=== PATIENT | female | born 1975 | race Caucasian/White ===

== ENCOUNTER 2020-01-09 06:46 | Emergency (ER) | payer SELFPAY ==
[2020-01-09] MEDS ORDERED: Sodium Chloride 0.9% 2.5 ML Syringe FLUSH PRN (07:13)
[2020-01-09] MEDS ORDERED: Morphine 4 MG/ML Syringe IVPUSH ONE (07:13)
[2020-01-09] MEDS ORDERED: Sodium Chloride 0.9% 1,000 ML IV ONE (07:13)
[2020-01-09] MEDS ORDERED: Sodium Chloride 0.9% 10 ML Syringe FLUSH PRN (07:13)
[2020-01-09] MEDS ORDERED: Ondansetron 4 MG/2 ML SDV IVPUSH ONE (07:13)
--- NOTE | 2020-01-09 07:41 | EDM.PDOC ---
ED HPI GENERAL MEDICAL PROBLEM - General Chief Complaint: Upper Extremity Injury/Pain Stated Complaint: SEVERE LEFT SHOULDER PAIN Time Seen by Provider: 01/09/20 07:09 Source of Information: Reports: Patient - History of Present Illness INITIAL COMMENTS - FREE TEXT/NARRATIVE: History of present illness: 44-year-old female presenting with left shoulder pain on and off for the last week, now radiating down the left arm and associated with some numbness feeling in the arm. She does not recall any trauma or abnormal twisting of the arm but the day before her pain started she had been doing some work up on a bulletin board with her arm above her head. Since then the pain has been intermittent, however yesterday she went to a chiropractor who did an adjustment on her neck, and then she woke up in the middle of the night last night with severe and worsening left shoulder pain. She took 800 mg of ibuprofen which did not help her pain and she continued to have worsening of the pain in the posterior shoulder radiating down to the arm that was severe and started to become associated with nausea. She has not had any chest pain or shortness of breath during this time. No abdominal pain. No neck pain. Review of systems: As per history of present illness and below otherwise all systems reviewed and negative. Past medical history: As per history of present illness and as reviewed below otherwise noncontributory. Hypertension Surgical history: As per history of present illness and as reviewed below otherwise noncontributory. Cholecystectomy hysterectomy Social history: No reported history of drug or alcohol abuse. No tobacco Family history: As per history of present illness and as reviewed below otherwise noncontributory. Physical exam: GEN: no acute distress, well appearing HEENT: Atraumatic, normocephalic, mucous membranes moist, Neck: supple, nontender, trachea midline. No C-spine tenderness. Lungs: No respiratory distress. Heart: RRR Abdomen: Soft, nondistended, nontender. Back: nontender, no midline tenderness Extremities: Atraumatic, there is mild pain with range of motion of the left shoulder but no tenderness about the joint, no tenderness in the posterior shoulder/scapular area where the patient reports her pain is the greatest. Neurovascularly intact. Neuro: Awake, alert, oriented. Neuro Exam nonfocal. Skin: warm, dry, no lesions Diagnostics: Labs, EKG, CT angios. Therapeutics: [] MDM: Impression: [] Plan: [] Definitive disposition and diagnosis as appropriate pending reevaluation and review of above. left arm Pain Score (Numeric/FACES): 10 - Related Data Allergies Allergy/AdvReac Type Severity Reaction Status Date / Time codeine Allergy Anaphylactic Verified 01/09/20 07:03 Shock Home Meds: Home Meds hydrOXYzine HCl [Atarax] 1 tab PO ASDIRECTED PRN 12/17/14 [History] Bp Med 01/09/20 [History] Past Medical History Other HEENT History: Reports smoked for about 3 yrs, QUIT 15 yrs ago Cardiovascular History: Reports: Hypertension Respiratory History: Reports: None Other BAKING ASSISTANT History: Heavy Menses Musculoskeletal History: Reports: None Neurological History: Reports: None Other Psychiatric History: Use Anit-histamine OTC for treatment of Anxiety periodically Endocrine/Metabolic History: Reports: None Hematologic History: Reports: None Dermatologic History: Reports: None - Past Surgical History Other GI Surgeries/Procedures: Age 18 yrs Lap CHolecystectomy Female Surgical History: Reports: Hysterectomy Social & Family History - Family History Family Medical History: Noncontributory - Tobacco Use Smoking Status *Q: Never Smoker - Recreational Drug Use Recreational Drug Use: No Review of Systems - Review of Systems Review Of Systems: See Below (HPI) ED EXAM, GENERAL - Physical Exam Exam: See Below (See HPI) EKG INTERPRETATION EKG Interpretation Comments: EKG performed today at 7:20 AM, sinus rhythm, rate 98, QTc 451, T inversions in the inferior leads, no STEMI. Interpreted by me. Course - Vital Signs Text/Narrative:: Presenting with worsening left shoulder pain without any significant trauma. Pain significantly worsened after chiropractic manipulation Differential diagnosis: Cardiac etiology/angina/ACS, aortic dissection, cervical disc disease, cervical vasculature injury/dissection after chiropractic manipulation, left shoulder strain, rotator cuff injury, cervical radiculopathy EKG with inferior T inversions but no other significant abnormalities, no STEMI. Labs pending. Initial and repeat troponin negative. Labs unremarkable. CT angio neck, CT angios chest with no signs of any arterial or aortic dissection or any other acute pathology. No clear etiology for the patient's pain. Pain ongoing despite multiple different medications including different classes of medications. Finally pain seemed to be more muscular spasm-like and therefore got Flexeril and lidocaine patch and had significant improvement. Low risk for coronary artery disease, heart score 3, initial and repeat troponin negative. Stable for discharge Last Recorded V/S: Last Vital Signs Temp 96.5 F L 01/09/20 12:51 Pulse 78 01/09/20 12:51 Resp 12 01/09/20 12:51 BP 127/60 01/09/20 12:51 Pulse Ox 96 01/09/20 12:51 - Orders/Labs/Meds Orders: Active Orders 24 hr Category Date Time Status EKG Documentation Completion [RC] STAT Care 01/09/20 07:15 Active Sodium Chloride 0.9% [Saline Flush] Med 01/09/20 07:13 Active 10 ml FLUSH ASDIRECTED PRN Sodium Chloride 0.9% [Saline Flush] Med 01/09/20 07:13 Active 2.5 ml FLUSH ASDIRECTED PRN Saline Lock Insert [OM.PC] Stat Oth 01/09/20 07:13 Ordered Medication Orders Sodium Chloride (Saline Flush) 10 ml FLUSH ASDIRECTED PRN PRN Reason: Keep Vein Open Last Admin: 01/09/20 10:17 Dose: 10 ml Documented by: JODY Sodium Chloride (Saline Flush) 2.5 ml FLUSH ASDIRECTED PRN PRN Reason: Keep Vein Open Last Admin: 01/09/20 10:16 Dose: 2.5 ml Documented by: JODY Labs: Laboratory Tests 01/09/20 01/09/20 01/09/20 Range/Units 07:19 07:19 09:02 WBC 9.68 (4.0-11.0) K/uL RBC 5.11 (4.30-5.90) M/uL Hgb 13.9 (12.0-16.0) g/dL Hct 42.6 (36.0-46.0) % MCV 83.4 (80.0-98.0) fL MCH 27.2 (27.0-32.0) pg MCHC 32.6 (31.0-37.0) g/dL RDW Std Deviation 41.6 (28.0-62.0) fl RDW Coeff of July 14 (11.0-15.0) % Plt Count 309 (150-400) K/uL MPV 8.60 (7.40-12.00) fL Neut % (Auto) 65.7 (48.0-80.0) % Lymph % (Auto) 23.7 (16.0-40.0) % [place] % (Auto) 6.5 (0.0-15.0) % Eos % (Auto) 3.9 (0.0-7.0) % Baso % (Auto) 0.2 (0.0-1.5) % Neut # (Auto) 6.4 H (1.4-5.7) K/uL Lymph # (Auto) 2.3 (0.6-2.4) K/uL [place] # (Auto) 0.6 (0.0-0.8) K/uL Eos # (Auto) 0.4 (0.0-0.7) K/uL Baso # (Auto) 0.0 (0.0-0.1) K/uL Nucleated RBC % 0.0 /100WBC Nucleated RBCs # 0 K/uL Sodium 143 (136-145) mmol/L Potassium 3.8 (3.5-5.1) mmol/L Chloride 105 (98-107) mmol/L Carbon Dioxide 26.9 (21.0-32.0) mmol/L BUN 15 (7.0-18.0) mg/dL Creatinine 0.8 (0.6-1.0) mg/dL Est Cr Clr Drug Dosing 73.46 mL/min Estimated GFR (MDRD) > 60.0 ml/min Glucose 146 H (74-106) mg/dL Calcium 9.2 (8.5-10.1) mg/dL Total Bilirubin 0.3 (0.2-1.0) mg/dL AST 19 (15-37) IU/L ALT 31 (14-63) IU/L Alkaline Phosphatase 89 (46-116) U/L Troponin I < 0.050 (0.000-0.056) ng/mL Total Protein 7.0 (6.4-8.2) g/dL Albumin 3.7 (3.4-5.0) g/dL Globulin 3.3 (2.6-4.0) g/dL Albumin/Globulin Ratio 1.1 (0.9-1.6) Urine Color YELLOW Urine Appearance SLT CLOUDY Urine pH 5.5 (5.0-8.0) Ur Specific [place] <= 1.005 (1.001-1.035) Urine Protein NEGATIVE (NEGATIVE) mg/dL Urine Glucose (UA) NEGATIVE (NEGATIVE) mg/dL Urine Ketones NEGATIVE (NEGATIVE) mg/dL Urine Occult Blood NEGATIVE (NEGATIVE) Urine Nitrite NEGATIVE (NEGATIVE) Urine Bilirubin NEGATIVE (NEGATIVE) Urine Urobilinogen 0.2 (<2.0) EU/dL Ur Leukocyte Esterase NEGATIVE (NEGATIVE) 01/09/20 Range/Units 10:34 WBC (4.0-11.0) K/uL RBC (4.30-5.90) M/uL Hgb (12.0-16.0) g/dL Hct (36.0-46.0) % MCV (80.0-98.0) fL MCH (27.0-32.0) pg MCHC (31.0-37.0) g/dL RDW Std Deviation (28.0-62.0) fl RDW Coeff of July (11.0-15.0) % Plt Count (150-400) K/uL MPV (7.40-12.00) fL Neut % (Auto) (48.0-80.0) % Lymph % (Auto) (16.0-40.0) % [place] % (Auto) (0.0-15.0) % Eos % (Auto) (0.0-7.0) % Baso % (Auto) (0.0-1.5) % Neut # (Auto) (1.4-5.7) K/uL Lymph # (Auto) (0.6-2.4) K/uL [place] # (Auto) (0.0-0.8) K/uL Eos # (Auto) (0.0-0.7) K/uL Baso # (Auto) (0.0-0.1) K/uL Nucleated RBC % /100WBC Nucleated RBCs # K/uL Sodium (136-145) mmol/L Potassium (3.5-5.1) mmol/L Chloride (98-107) mmol/L Carbon Dioxide (21.0-32.0) mmol/L BUN (7.0-18.0) mg/dL Creatinine (0.6-1.0) mg/dL Est Cr Clr Drug Dosing mL/min Estimated GFR (MDRD) ml/min Glucose (74-106) mg/dL Calcium (8.5-10.1) mg/dL Total Bilirubin (0.2-1.0) mg/dL AST (15-37) IU/L ALT (14-63) IU/L Alkaline Phosphatase (46-116) U/L Troponin I < 0.050 (0.000-0.056) ng/mL Total Protein (6.4-8.2) g/dL Albumin (3.4-5.0) g/dL Globulin (2.6-4.0) g/dL Albumin/Globulin Ratio (0.9-1.6) Urine Color Urine Appearance Urine pH (5.0-8.0) Ur Specific [place] (1.001-1.035) Urine Protein (NEGATIVE) mg/dL Urine Glucose (UA) (NEGATIVE) mg/dL Urine Ketones (NEGATIVE) mg/dL Urine Occult Blood (NEGATIVE) Urine Nitrite (NEGATIVE) Urine Bilirubin (NEGATIVE) Urine Urobilinogen (<2.0) EU/dL Ur Leukocyte Esterase (NEGATIVE) Meds: Medications Generic Name Dose Route Start Last Admin Trade Name Freq PRN Reason Stop Dose Admin Sodium Chloride 10 ml 01/09/20 07:13 01/09/20 10:17 Saline Flush FLUSH 10 ml ASDIRECTED PRN Administration Keep Vein Open Sodium Chloride 2.5 ml 01/09/20 07:13 01/09/20 10:16 Saline Flush FLUSH 2.5 ml ASDIRECTED PRN Administration Keep Vein Open Discontinued Medications Generic Name Dose Route Start Last Admin Trade Name Freq PRN Reason Stop Dose Admin Acetaminophen 650 mg 01/09/20 08:11 01/09/20 08:20 Tylenol PO 01/09/20 08:12 650 mg NOW ONE Administration Cyclobenzaprine HCl 10 mg 01/09/20 11:47 01/09/20 12:02 Flexeril PO 01/09/20 11:48 10 mg ONETIME ONE Administration Dexamethasone 8 mg 01/09/20 10:28 01/09/20 10:49 Dexamethasone IVPUSH 01/09/20 10:29 8 mg ONETIME ONE Administration Diphenhydramine HCl 25 mg 01/09/20 08:11 01/09/20 08:21 Benadryl IVPUSH 01/09/20 08:12 25 mg ONETIME ONE Administration Sodium Chloride 1,000 mls @ 999 mls/hr 01/09/20 07:13 01/09/20 07:23 Normal Saline IV 01/09/20 08:13 999 mls/hr .Bolus ONE Administration Iopamidol 100 ml 01/09/20 09:03 01/09/20 09:04 Isovue-370 (76%) IVPUSH 01/09/20 09:04 100 ml ONETIME STA Administration Ketorolac Tromethamine 30 mg 01/09/20 09:58 01/09/20 10:17 Toradol IVPUSH 01/09/20 09:59 30 mg ONETIME ONE Administration Lidocaine 700 mg 01/09/20 11:47 01/09/20 12:02 Lidoderm 5% TOP 01/09/20 11:48 700 mg ONETIME ONE Administration Morphine Sulfate 4 mg 01/09/20 07:13 01/09/20 07:24 Morphine IVPUSH 01/09/20 07:14 4 mg ONETIME ONE Administration Ondansetron HCl 4 mg 01/09/20 07:13 01/09/20 07:23 Zofran IVPUSH 01/09/20 07:14 4 mg ONETIME ONE Administration - Re-Assessments/Exams Free Text/Narrative Re-Assessment/Exam: 01/09/20 08:02 Reporting pain ongoing and not resolved by morphine. I reassessed the patient. She reports she is not having any trouble breathing or any other new symptoms after having received the morphine. She had reported a codeine allergy in the past which involved some shortness of breath, but reported that she had had morphine in the past without any difficulty. She is not having any other symptoms at this time and including no other allergic reaction type signs. 01/09/20 08:12 The patient is now reporting that she feels somewhat drowsy after the morphine but continuing to have pain in the shoulder as her presenting complaint but also now developing some right-sided chest pain which she is concerned may be related to the morphine and she is afraid she is having an allergic reaction now, not having any difficulty breathing or throat tightness. Will give dose of Benadryl and Tylenol. 01/09/20 11:48 After multiple reassessments, the patient is still having intermittent left- sided shoulder pain radiating down to the arm. She does report now that she feels like there is some muscle isacc and enlarging around the paraspinal musculature and while her pain is in the maximal level during palpation there does appear to be a muscle spasm. Therefore we will attempt Flexeril and topical lidocaine patch. Based on the fact that the patient's pain is ongoing I did offer admission versus discharge. The patient is not certain yet and would like to attempt these most recent interventions and see if that will help. 01/09/20 12:41 On reassessment, the patient reports that she is feeling much better. The pain is now only mild discomfort. She does report she still has some occasional spasm type feelings but that they are much less severe. She does report that she is feeling well enough and would like to be discharged at this time. This was after having Flexeril and lidocaine patch. Will prescribe both of these medications for the patient as well as short prednisone burst and refer for outp atient follow-up as the patient may need further outpatient imaging including possibly MRI to evaluate for cervical or thoracic disc disease or radiculopathy. Departure - Departure Time of Disposition: 12:52 Disposition: Home, Self-Care 01 Clinical Impression: Radiculopathy affecting upper extremity, Muscle spasm - Discharge Information Instructions: Radicular Pain, Shoulder Pain, [id number], Cervical Radiculopathy, [id number], Muscle Cramps and Spasms Referrals: Venecia Freed, [facility] [Primary Care Provider] - 2 Days Forms: ED Department Discharge, ED Return to Work/School Form Additional Instructions: The cause for your pain today is unclear, although you may have a bulging disc in your cervical or thoracic spine causing radiculopathy. Please take the steroids for the next 5 days. You may also apply lidocaine patches for 12 hours on and then 12 hours off. You may take Flexeril as needed for muscle spasm but do not drive as this medication can be sedating. Return to the ER if you develop any chest pain or shortness of breath. In addition to all of the above you may also take Tylenol or ibuprofen alternating for pain control, in other words you can take Tylenol 1000 mg which is 2 extra strength tablets every 8 hours and in between those doses take 600 mg of ibuprofen so that medication is also spaced out by 8 hours. Please help with your primary care physician for further monitoring, recheck, who can obtain an MRI to further evaluate the area of pain. The following information is given to patients seen in the emergency department who are being discharged to home. This information is to outline your options for follow-up care. We provide all patients seen in our emergency department with a follow-up referral. The need for follow-up, as well as the timing and circumstances, are variable depending upon the specifics of your emergency department visit. If you don't have a primary care physician on staff, we will provide you with a referral. We always advise you to contact your personal physician following an emergency department visit to inform them of the circumstance of the visit and for follow-up with them and/or the need for any referrals to a consulting specialist. The emergency department will also refer you to a specialist when appropriate. This referral assures that you have the opportunity for follow-up care with a specialist. All of these measure are taken in an effort to provide you with optimal care, which includes your follow-up. Under all circumstances we always encourage you to contact your private physician who remains a resource for coordinating your care. When calling for follow-up care, please make the office aware that this follow-up is from your recent emergency room visit. If for any reason you are refused follow-up, please contact the [facility] Emergency Department at and asked to speak to the emergency department charge nurse. Sepsis Event Note (ED) - Evaluation Sepsis Screening Result: No Definite Risk - Focused Exam Vital Signs: Vital Signs Temp Pulse Resp BP Pulse Ox 01/09/20 12:51 96.5 F L 78 12 127/60 96 01/09/20 12:05 83 18 104/65 94 L 01/09/20 10:51 75 14 111/58 L 96 01/09/20 09:26 96.6 F L 81 14 146/57 H 94 L 01/09/20 08:11 93 18 137/60 94 L 01/09/20 07:04 96.3 F L 89 18 122/79 97 - My Orders Last 24 Hours: My Active Orders 01/09/20 07:13 Sodium Chloride 0.9% [Saline Flush] 10 ml FLUSH ASDIRECTED PRN Sodium Chloride 0.9% [Saline Flush] 2.5 ml FLUSH ASDIRECTED PRN Saline Lock Insert [OM.PC] Stat 01/09/20 07:15 EKG Documentation Completion [RC] STAT - Assessment/Plan Last 24 Hours: My Active Orders 01/09/20 07:13 Sodium Chloride 0.9% [Saline Flush] 10 ml FLUSH ASDIRECTED PRN Sodium Chloride 0.9% [Saline Flush] 2.5 ml FLUSH ASDIRECTED PRN Saline Lock Insert [OM.PC] Stat 01/09/20 07:15 EKG Documentation Completion [RC] STAT
[2020-01-09 07:59] LABS: BLOOD UREA NITROGEN,BUN 15 mg/dL (7.0-18.0); CARBON DIOXIDE,CO2 26.9 mmol/L (21.0-32.0); CHLORIDE,CL 105 mmol/L (98-107); GLUCOSE RANDOM 146 mg/dL (74-106); POTASSIUM,K 3.8 mmol/L (3.5-5.1); SODIUM,NA 143 mmol/L (136-145)
[2020-01-09] MEDS ORDERED: diphenhydrAMINE 50 MG/ML SDV IVPUSH ONE (08:11)
[2020-01-09] MEDS ORDERED: Acetaminophen 325 MG Tab PO ONE (08:11)
[2020-01-09] MEDS ORDERED: Iopamidol 755 Mg/ML 100 ML Bottle IVPUSH STA (09:03)
--- NOTE | 2020-01-09 09:23 | CR ---
Left shoulder: 3 views of the left shoulder were obtained. Comparison: No prior shoulder study. Minimal joint space narrowing is seen within the acromioclavicular joint without abnormal inferior spurring. Glenohumeral joint appears within normal limits. No acute fracture or other bony abnormality is appreciated. Impression: 1. Slight joint space narrowing within the acromioclavicular joint. 2. Left shoulder study is otherwise unremarkable. Diagnostic code #2 Study was dictated in MDT
--- NOTE | 2020-01-09 09:32 | CT ---
Indication: Acute shoulder and back pain. Question dissection. Technique: A CT volumetric acquisition was performed of the thorax during bolus infusion of 100 cc of Isovue 370 nonionic intravenous contrast. Comparison: None Findings: The CT images demonstrate uniform vascular enhancement within the aortic arch and proximal great vessels. There is no evidence dissection within the thoracic aorta or aneurysm formation. Heart size appears normal. There is no evidence pericardial fluid or pleural fluid. The esophagus appears normal and there is no evidence of pneumomediastinum or pneumothorax. The lungs show symmetric inflation. There are no suspicious infiltrates, masses or nodules. Impression: No evidence of aortic dissection or aneurysm within the thorax. Please note that all CT scans at this facility use dose modulation, iterative reconstruction, and/or weight-based dosing when appropriate to reduce radiation dose to as low as reasonably achievable. Dictated by Quinton Haas MD @ Jan 09 2020 9:20AM Signed by Dr. Quinton Haas @ Jan 09 2020 9:32AM
--- NOTE | 2020-01-09 09:36 | CT ---
Indication: Acute shoulder and back pain. Question dissection. Technique: A CT volumetric acquisition was performed of the neck during bolus infusion of 100 cc of Isovue 370 nonionic intravenous contrast. Findings: CT images demonstrate uniform vascular enhancement within the common carotid arteries and internal carotid arteries. There is dominant jugular venous drainage on the left. There is normal vascular enhancement within the vertebral arteries. The subclavian arteries also show normal uniform enhancement. Thyroid gland has normal size and density. There is normal appearance of the parotid and submandibular glands. The nasopharynx and oropharynx appear normal. There is no evidence of cervical lymphadenopathy. Impression: No evidence of vascular dissection within the neck. Please note that all CT scans at this facility use dose modulation, iterative reconstruction, and/or weight-based dosing when appropriate to reduce radiation dose to as low as reasonably achievable. Dictated by Quinton Haas MD @ Jan 09 2020 9:32AM Signed by Dr. Quinton Haas @ Jan 09 2020 9:36AM
[2020-01-09] MEDS ORDERED: Ketorolac 30 MG/ML SDV IVPUSH ONE (09:58)
[2020-01-09] MEDS ORDERED: Dexamethasone 10 MG/ML SDV IVPUSH ONE (10:28)
[2020-01-09] MEDS ORDERED: Cyclobenzaprine 10 MG Tab PO ONE (11:47)
[2020-01-09] MEDS ORDERED: Lidocaine 5% 700 MG Patch TOP ONE (11:47)
[2020-01-09 12:51] VITALS: PULSE 78
[2020-01-09 13:26] VITALS: BP 113/55
== END 2020-01-09 13:26 | disposition home or self-care (01) ==
LOC: MW.ED 06:46
DX: M54.12 Radiculopathy, cervical region (principal); M62.838 Other muscle spasm; I10 Essential (primary) hypertension; Z88.5 Allergy status to narcotic agent
CPT/HCPCS: 36415; 70498; 71275; 73030; 80053; 81003; 84484; 85025; 93005; 96361; 96374; 96375; 99284; A9270; J1100; J1200; J1885; J2270; J2405; J7030; Q9967; 99283

== ENCOUNTER 2020-01-10 20:43 | Emergency (ER) | payer SELFPAY ==
--- NOTE | 2020-01-10 20:55 | EDM.PDOC ---
ED HPI GENERAL MEDICAL PROBLEM - General Chief Complaint: Back Pain or Injury Stated Complaint: NECK, BACK SHOULDER PAIN Time Seen by Provider: 01/10/20 20:45 Source of Information: Reports: Patient, Old Records History Limitations: Reports: No Limitations - History of Present Illness INITIAL COMMENTS - FREE TEXT/NARRATIVE: 44-year-old female with no pertinent past medical history presenting with shoulder pain. She was seen in our emergency department yesterday morning for left shoulder pain for approximately 1 week. She had a large work-up including CT angiogram of the neck, CT aortogram, and x-rays of the left shoulder. Imaging studies were negative. The patient was treated symptomatically with a variety of medications including morphine, Toradol, acetaminophen, Flexeril, dexamethasone, diphenhydramine, a lidocaine patch, and Zofran. She had greatest relief with the Flexeril and was able to discharge home with several medications including Flexeril, lidocaine patches, prednisone, and hydroxyzine. This evening she presents back to the emergency department complaining of persistent pain to the left side of her lower neck and the left side of her upper back, radiating to the left upper extremity. She reports "tingling" pain radiating to the left hand. Worse with movement, better when she raises her arms above her head. She denies any trauma to the head or neck, denies any weakness or numbness to the left upper extremity. Denies any night sweats or weight loss. Denies any chest pain or shortness of breath. Denies any hemoptysis. ROS: A 10-point review of systems was negative, except as noted in the HPI (or in the ROS section of this note). Past medical history: Reviewed, no additional pertinent history. Surgical history: Reviewed in system, no additional pertinent history. Social history: Reviewed in system, no additional pertinent history. Family history: Reviewed in system, no additional pertinent history. PHYSICAL EXAM Vital signs reviewed. Nursing notes reviewed. Constitutional: Awake, alert, non-distressed. Head: Normocephalic, atraumatic. Eyes: EOMI, conjunctiva normal, no discharge, no scleral icterus. Ears, Nose, Throat: External ears and nose normal, moist oral mucosa. Cardiovascular: 2+ left radial pulse, capillary refill less than 2 seconds. Pulmonary: normal work of breathing, no accessory muscle use. Abdomen/GI: Soft, nontender, nondistended, no guarding or rigidity, no masses. Musculoskeletal: No deformities. Normal range of motion of the left shoulder, elbow, and wrist joints. Integumentary: Appropriate color for ethnicity, warm, dry, no pallor or jaundice, no rash. Neurologic: Alert, answering questions appropriately, normal speech, no facial droop, moving all extremities well. 5/5 strength of bilateral upper extremities. Normal sensation to light touch to the bilateral upper extremities. Psychiatric: Appropriate mood and affect, normal thought process. L arm Pain Score (Numeric/FACES): 10 - Related Data Allergies Allergy/AdvReac Type Severity Reaction Status Date / Time codeine Allergy Anaphylactic Verified 01/09/20 07:03 Shock Home Meds: Home Meds hydrOXYzine HCl [Atarax] 1 tab PO ASDIRECTED PRN 12/17/14 [History] Cyclobenzaprine [Flexeril] 5 mg PO Q8HR PRN #15 tab 01/09/20 [Rx] Lidocaine 5% [Lidoderm 5%] 1 patch TOP DAILY PRN #15 patch 01/09/20 [Rx] predniSONE [Prednisone] 60 mg PO DAILY 5 Days #15 tablet 01/09/20 [Rx] Acetaminophen [Acetaminophen Extra Strength] 500 - 1,000 mg PO Q6H PRN #30 tablet 01/11/20 [Rx] Ibuprofen 400 mg PO Q6H PRN #30 tablet 01/11/20 [Rx] oxyCODONE 10 mg PO Q6H PRN #20 tab 01/11/20 [Rx] Past Medical History Other HEENT History: Reports smoked for about 3 yrs, QUIT 15 yrs ago Cardiovascular History: Reports: Hypertension Respiratory History: Reports: None Other UI PROGRAMMER History: Heavy Menses Musculoskeletal History: Reports: None Neurological History: Reports: None Other Psychiatric History: Use Anit-histamine OTC for treatment of Anxiety periodically Endocrine/Metabolic History: Reports: None Hematologic History: Reports: None Dermatologic History: Reports: None - Past Surgical History Other GI Surgeries/Procedures: Age 18 yrs Lap CHolecystectomy Female Surgical History: Reports: Hysterectomy Social & Family History - Family History Family Medical History: Noncontributory ED ROS GENERAL - Review of Systems Review Of Systems: See Below ED EXAM, UPPER BACK/NECK PAIN - Physical Exam Exam: See Below Course - Vital Signs Text/Narrative:: Patient [hemodynamically stable, afebrile], well-appearing, looks nontoxic. Differential diagnosis includes but is not limited to: Cervical disc herniation, strain, sprain, back pain, fracture, dislocation, malignancy, etc. Metabolic panel shows mild hyperglycemia. CT imaging of the cervical spine shows an apparent left paracentral disc protrusion/disc osteophyte complex at C6/7. Patient treated symptomatically with p.o. diazepam and IV fentanyl with good relief of her pain. She is neurovascularly intact in the left upper extremity and there is no indication for an emergent MRI. She had a very thorough work-up yesterday including CT imaging of the vasculature of the neck and a CT pulmonary angiogram and left shoulder x-rays, these studies were reassuring. I have low suspicion for vascular emergency or malignancy at this point. There is no evidence of bony injury on numerous radiographic imaging studies over the past 2 days. I believe that her presentation is consistent with a cervical disc herniation. We will plan to discharge her home and have her follow-up with neurosurgery/spine surgery clinic in the [facility] in [place], [place] in the next 1 week. In the meantime we will prescribe some oxycodone and recommend acetaminophen, ibuprofen, and heating pad. I explicitly counseled the patient to not take Flexeril and oxycodone together due to risk of overdose and . Plan: Patient is stable to discharge home with outpatient neurosurgery/spine surgery clinic follow-up. Strict emergency department return precautions were provided, patient indicated understanding. All questions were answered prior to departure. Discharged in good condition. Last Recorded V/S: Last Vital Signs Temp 36.6 C 01/10/20 23:45 Pulse 94 01/10/20 23:45 Resp 18 01/10/20 23:45 BP 142/77 H 01/10/20 23:45 Pulse Ox 95 01/10/20 23:45 - Orders/Labs/Meds Orders: Active Orders 24 hr Category Date Time Status Saline Lock Insert [OM.PC] Stat Oth 01/10/20 21:33 Ordered Labs: Laboratory Tests 01/10/20 Range/Units 21:40 Sodium 140 (136-145) mmol/L Potassium 3.8 (3.5-5.1) mmol/L Chloride 103 (98-107) mmol/L Carbon Dioxide 25.4 (21.0-32.0) mmol/L BUN 18 (7.0-18.0) mg/dL Creatinine 0.9 (0.6-1.0) mg/dL Est Cr Clr Drug Dosing 65.30 mL/min Estimated GFR (MDRD) > 60.0 ml/min Glucose 189 H (74-106) mg/dL Calcium 9.0 (8.5-10.1) mg/dL Meds: Medications Discontinued Medications Generic Name Dose Route Start Last Admin Trade Name Freq PRN Reason Stop Dose Admin Diazepam 10 mg 01/10/20 21:33 01/10/20 21:47 Valium. PO 01/10/20 21:34 10 mg ONETIME ONE Administration Fentanyl 100 mcg 01/10/20 22:47 01/10/20 22:56 Fentanyl IVPUSH 01/10/20 22:48 100 mcg ONETIME ONE Administration Fentanyl 50 mcg 01/11/20 00:32 01/11/20 00:37 Fentanyl IVPUSH 01/11/20 00:33 50 mcg ONETIME ONE Administration Fentanyl Confirm 01/11/20 00:34 01/11/20 03:18 Fentanyl Administered 01/11/20 00:35 Not Given Dose 50 mcg .ROUTE .STK-MED ONE Sodium Chloride 10 ml 01/10/20 21:33 Saline Flush FLUSH ASDIRECTED PRN Keep Vein Open Sodium Chloride 2.5 ml 01/10/20 21:33 Saline Flush FLUSH ASDIRECTED PRN Keep Vein Open Departure - Departure Time of Disposition: 23:00 Disposition: Home, Self-Care 01 Clinical Impression: Cervical disc herniation - Discharge Information *PRESCRIPTION DRUG MONITORING PROGRAM REVIEWED*: Yes *COPY OF PRESCRIPTION DRUG MONITORING REPORT IN PATIENT STEFANY: Not Applicable Prescriptions: Acetaminophen [Acetaminophen Extra Strength] 500 - 1,000 mg PO Q6H PRN #30 tablet PRN Reason: Pain (Mild 1-3) Ibuprofen 400 mg PO Q6H PRN #30 tablet PRN Reason: Pain (Mild 1-3) oxyCODONE 10 mg PO Q6H PRN #20 tab PRN Reason: Pain (Severe 7-10) Instructions: Musculoskeletal Pain Referrals: Venecia Freed NP [Primary Care Provider] - 1 Week (For follow-up of complaints.) Forms: ED Department Discharge Additional Instructions: You were seen in the emergency department for neck, back, and arm pain. Your CT scan demonstrated that you have a herniated disc in your neck, I believe that this is pushing on a nerve that supplies your left arm and is the cause of your pain. I would recommend that you follow-up with the neurosurgery/spine surgery clinic in the [facility] in [place] in the next 1 to 2 weeks for reevaluation. In the meantime we will prescribe a short course of oxycodone I also recommend acetaminophen, ibuprofen, and a heating pad. You can also try Voltaren gel which is available [id number]. I also recommend setting up an appointment with our physical therapy clinic until you can get seen by a neurosurgeon or spine surgeon. Oxycodone is a prescription pain medication. It is an opioid and can be quite sedating. Do not take oxycodone with the Flexeril. I recommend you return the Flexeril to the pharmacy so can be safely disposed of. Taking oxycodone and Flexeril together can cause life-threatening respiratory depression, overdose, and . Do not drink or take any illicit drugs while you are taking oxycodone. It can be constipating so be sure you drink plenty of fluids. Please return the emergency department immediately if your symptoms worsen or if you feel worse. Thank you for choosing the [facility] emergency department in [place] for your medical needs today. It was a pleasure caring for you. The following information is given to patients seen in the emergency department who are being discharged. This information is to outline your options for follow-up care. We provide all patients seen in our emergency department with a follow-up referral. The need for follow-up, as well as the timing and circumstances, are variable depending upon the specifics of your emergency department visit. If you don't have a primary care physician on staff, we will provide you with a referral. We always advise you to contact your personal physician following an emergency department visit to inform them of the circumstance of the visit and for follow-up with them and/or the need for any referrals to a consulting specialist. The emergency department will also refer you to a specialist when appropriate. This referral assures that you have the opportunity for follow-up care with a specialist. All of these measure are taken in an effort to provide you with optimal care, which includes your follow-up. Under all circumstances we always encourage you to contact your private physician who remains a resource for coordinating your care. When calling for follow-up care, please make the office aware that this follow-up is from your recent emergency room visit. If for any reason you are refused follow-up, please contact the [facility] Emergency Department at and asked to speak to the emergency department charge nurse. If you do not have a primary care physician that is caring for you, you can contact these clinics below to set up an appointment to establish care: [facility] [address] [place] [address] [facility] [address] [place] [address] Sepsis Event Note (ED) - Focused Exam Vital Signs: Vital Signs Temp Pulse Resp BP Pulse Ox 01/10/20 23:45 36.6 C 94 18 142/77 H 95 01/10/20 21:00 107 H 20 131/76 95 01/10/20 20:52 36.9 C 131 H 20 141/107 H 96 - My Orders Last 24 Hours: My Active Orders 01/10/20 21:33 Saline Lock Insert [OM.PC] Stat - Assessment/Plan Last 24 Hours: My Active Orders 01/10/20 21:33 Saline Lock Insert [OM.PC] Stat
[2020-01-10] MEDS ORDERED: Sodium Chloride 0.9% 2.5 ML Syringe FLUSH PRN (21:33)
[2020-01-10] MEDS ORDERED: Sodium Chloride 0.9% 10 ML Syringe FLUSH PRN (21:33)
[2020-01-10] MEDS ORDERED: Diazepam 5 MG Tab PO ONE (21:33)
[2020-01-10 21:59] LABS: BLOOD UREA NITROGEN,BUN 18 mg/dL (7.0-18.0); CARBON DIOXIDE,CO2 25.4 mmol/L (21.0-32.0); CHLORIDE,CL 103 mmol/L (98-107); GLUCOSE RANDOM 189 mg/dL (74-106); POTASSIUM,K 3.8 mmol/L (3.5-5.1); SODIUM,NA 140 mmol/L (136-145)
[2020-01-10] MEDS ORDERED: fentaNYL 50 MCG/ML SDV IVPUSH ONE (22:47)
--- NOTE | 2020-01-10 23:11 | CT ---
INDICATION: Pain TECHNIQUE: CT cervical spine without contrast. COMPARISON: None available FINDINGS: There is mild reversal of the cervical lordosis and slight anterolisthesis at C5-6. The craniocervical and atlantoaxial alignments are near anatomical. There is no evidence of an acute cervical spine fracture. There is no significant precervical soft tissue swelling. There is an apparent left paracentral disc protrusion with small associated discogenic osteophytes at C6-7. IMPRESSION: No evidence of an acute cervical spine fracture. Reversal of lordosis which could represent muscle spasm. An apparent left paracentral disc protrusion/disc osteophyte complex at C6-7. If indicated, correlate with MRI. Dictated by Shlomo Marrero MD @ 01/10/2020 11:05:50 PM Please note that all CT scans at this facility use dose modulation, iterative reconstruction, and/or weight-based dosing when appropriate to reduce radiation dose to as low as reasonably achievable. Dictated by: Shlomo Marrero MD @ 01/10/2020 23:09:25 (Electronically Signed)
[2020-01-10 23:54] VITALS: BP 142/77; PULSE 94
[2020-01-11] MEDS ORDERED: fentaNYL 50 MCG/ML SDV IVPUSH ONE (00:32)
[2020-01-11] MEDS ORDERED: fentaNYL 50 MCG/ML SDV ONE (00:34)
== END 2020-01-11 00:45 | disposition home or self-care (01) ==
LOC: MW.ED 20:43
DX: M50.123 Cervical disc disorder at C6-C7 level with radiculopathy (principal); I10 Essential (primary) hypertension; Z88.5 Allergy status to narcotic agent; Z87.891 Personal history of nicotine dependence
CPT/HCPCS: 36415; 72125; 80048; 96374; 96376; 99284; A9270; J3010; 99283

== ENCOUNTER 2024-03-11 15:46 | Emergency (ER) | payer BC ==
[2024-03-11 16:24] LABS: BASOPHILS ABSOLUTE AUTO 0.04 K/uL (0.00-0.20); BASOPHILS PERCENT AUTO 0.4 % (0.0-1.0); EOSINOPHILS ABSOLUTE AUTO 0.28 K/uL (0.00-0.45); EOSINOPHILS PERCENT AUTO 2.5 % (0.0-6.0); HEMATOCRIT 41.5 % (37.0-47.0); HEMOGLOBIN 13.7 g/dL (12.0-16.0); IMMATURE GRAN ABSOLUTE AUTO 0.02 K/uL (0.00-0.05); IMMATURE GRAN PERCENT AUTO 0.2 % (0.0-0.4); LYMPHOCYTES ABSOLUTE AUTO 1.94 K/uL (1.00-4.80); MEAN CORPUSCULAR HEMOGLOBIN 27.2 pg (28.0-32.0); MEAN CORPUSCULAR VOLUME 82.3 fL (83.0-99.0); MONOCYTES ABSOLUTE AUTO 0.51 K/uL (0.00-0.80); MONOCYTES PERCENT AUTO 4.5 % (0.0-8.0); NEUTROPHILS ABSOLUTE AUTO 8.63 K/uL (1.80-7.70); NEUTROPHILS PERCENT AUTO 75.4 % (41.0-71.0); PLATELET COUNT,PLT 307 K/uL (150-400); RED BLOOD CELL COUNT 5.04 M/uL (4.10-5.30); WHITE BLOOD CELL COUNT,WBC 11.42 K/uL (3.9-11.3)
[2024-03-11 16:58] LABS: A/G RATIO 1.1 (0.9-1.6); ALANINE AMINOTRANSFERASE,ALT 30 IU/L (14-63); ALBUMIN 3.7 g/dL (3.4-5.0); ALKALINE PHOSPHATASE 97 U/L (46-116); ASPARTATE AMNIOTRANSFERASE,AST 19 IU/L (15-37); BILIRUBIN TOTAL 0.3 mg/dL (0.2-1.0); BLOOD UREA NITROGEN,BUN 20 mg/dL (7.0-18.0); CHLORIDE,CL 104 mmol/L (98-107); CREATININE 1.1 mg/dL (0.6-1.0); EST CRCL DRUG DOSING (CG) 51.18 mL/min; GLUCOSE RANDOM 132 mg/dL (74-106); POTASSIUM,K 4.3 mmol/L (3.5-5.1); PRO B-TYPE NATRIUR PEPT,BNPPRO 21 pg/mL (0-125); PROTEIN TOTAL,TP 7.2 g/dL (6.4-8.2); SODIUM,NA 138 mmol/L (136-145); TSH ULTRASENSITIVE 2.42 uIU/mL (0.36-3.74)
[2024-03-11 17:00] LABS: ESTIMATED GFR 62 mL/min (>60)
[2024-03-11 19:38] VITALS: BP 131/53; PULSE 878
== END 2024-03-11 19:37 | disposition home or self-care (01) ==
LOC: MW.ED 15:46
DX: R07.89 Other chest pain (principal); I10 Essential (primary) hypertension; Z90.49 Acquired absence of other specified parts of digestive tract; Z90.710 Acquired absence of both cervix and uterus; Z79.899 Other long term (current) drug therapy; Z88.5 Allergy status to narcotic agent
CPT/HCPCS: 36415; 71045; 71045-26; 80053; 83880; 84443; 84484; 85025; 85379; 93005; 99284; 99285

== ENCOUNTER 2024-08-19 13:54 | Emergency (ER) | payer BC ==
[2024-08-19] MEDS ORDERED: Sodium Chloride 0.9% 2.5 ML Syringe FLUSH PRN (14:00)
[2024-08-19] MEDS ORDERED: Sodium Chloride 0.9% 10 ML Syringe FLUSH PRN (14:00)
[2024-08-19] MEDS: Ketorolac 30 MG/ML SDV IVPUSH ONE (14:34)
[2024-08-19] MEDS: Ondansetron 4 MG/2 ML SDV IVPUSH ONE (14:34)
[2024-08-19] MEDS: Sodium Chloride 0.9% 1,000 ML IV ONE (14:35)
[2024-08-19 14:40] LABS: BASOPHILS ABSOLUTE AUTO 0.02 K/uL (0.00-0.20); BASOPHILS PERCENT AUTO 0.4 % (0.0-1.0); EOSINOPHILS ABSOLUTE AUTO 0.24 K/uL (0.00-0.45); EOSINOPHILS PERCENT AUTO 5.2 % (0.0-6.0); HEMATOCRIT 42.1 % (37.0-47.0); IMMATURE GRAN ABSOLUTE AUTO 0.01 K/uL (0.00-0.05); IMMATURE GRAN PERCENT AUTO 0.2 % (0.0-0.4); LYMPHOCYTES ABSOLUTE AUTO 0.56 K/uL (1.00-4.80); LYMPHOCYTES PERCENT AUTO 12.1 % (24.0-44.0); MEAN CORPUSCULAR HEMOGLOBIN 26.8 pg (28.0-32.0); MEAN CORPUSCULAR HGB CONC 33.3 g/dL (32.0-36.0); MEAN CORPUSCULAR VOLUME 80.5 fL (83.0-99.0); MEAN PLATELET VOLUME 8.5 fL (9.4-12.3); MONOCYTES PERCENT AUTO 6.5 % (0.0-8.0); NEUTROPHILS ABSOLUTE AUTO 3.48 K/uL (1.80-7.70); NEUTROPHILS PERCENT AUTO 75.6 % (41.0-71.0); PLATELET COUNT,PLT 202 K/uL (150-400); RED BLOOD CELL COUNT 5.23 M/uL (4.10-5.30); WHITE BLOOD CELL COUNT,WBC 4.61 K/uL (3.9-11.3)
[2024-08-19 14:55] LABS: INR 1.05 (0.86-1.11)
[2024-08-19 15:12] LABS: A/G RATIO 1.1 (0.9-1.6); ALBUMIN 3.9 g/dL (3.4-5.0); BILIRUBIN TOTAL 0.3 mg/dL (0.2-1.0); CALCIUM 9.7 mg/dL (8.5-10.1); CARBON DIOXIDE,CO2 27.1 mmol/L (21.0-32.0); EST CRCL DRUG DOSING (CG) 55.68 mL/min; MAGNESIUM 1.7 mg/dL (1.8-2.4); POTASSIUM,K 4.4 mmol/L (3.5-5.1); PROTEIN TOTAL,TP 7.6 g/dL (6.4-8.2)
[2024-08-19 15:48] LABS: APPEARANCE,URINE SLT CLOUDY; BILIRUBIN,URINE NEGATIVE (NEGATIVE); COLOR,URINE YELLOW; GLUCOSE,URINE NEGATIVE (NEGATIVE); KETONES,URINE TRACE mg/dL (NEGATIVE); LEUKOCYTE ESTERASE,URINE NEGATIVE (NEGATIVE); NITRITE,URINE NEGATIVE (NEGATIVE); OCCULT BLOOD,URINE NEGATIVE (NEGATIVE); PH,URINE 5.5 (5.0-8.0); PROTEIN,URINE TRACE mg/dL (NEGATIVE); UROBILINOGEN,URINE 0.2 EU/dL (<2.0)
[2024-08-19 15:49] VITALS: BP 130/77; PULSE 92
[2024-08-19 16:03] LABS: BACTERIA,URINE FEW (NEGATIVE); EPITHELIAL CELLS,URINE MODERATE (NONE-FEW); MUCUS,URINE HEAVY (NONE-MOD); RBC,URINE 0-1 (0-2/HPF); WBC,URINE 0-2 (0-5/HPF)
== END 2024-08-19 15:50 | disposition home or self-care (01) ==
LOC: MW.ED 13:54
DX: R07.2 Precordial pain (principal); I10 Essential (primary) hypertension; Z88.5 Allergy status to narcotic agent; Z79.899 Other long term (current) drug therapy
CPT/HCPCS: 36415; 71045; 80053; 81001; 83690; 83735; 83880; 85025; 85610; 87428; 93005; 96361; 96374; 96375; 99285; J1885; J2405; J7030; 99283